=== PATIENT | female | born 1995 | race Caucasian/White ===

== ENCOUNTER 2017-09-19 18:24 | Emergency (ER) | payer OTHER ==
[~2017-09-19] VITALS: Ht 170.2 cm; Wt 66.9 kg
[2017-09-19 18:26] VITALS: TEMP 36.5; Ht 170.2 cm; Wt 66.9 kg
[2017-09-19] MEDS ORDERED: OPTIRAY 320 IV PRN (19:15)
[2017-09-19] MEDS: PATIENT'S ALLERGY INFO NEEDS ENTERED SCH ×2 (19:45→20:15)
[2017-09-19 19:49] LABS: HEMATOCRIT 42.4 % (37-47); HEMOGLOBIN 14.7 g/dL (12.0-16.0); MEAN CORPUSCULAR HEMOGLOBIN 29.1 pg (25-34); MEAN CORPUSCULAR HGB CONC 34.7 g/dl (32-36); MEAN PLATELET VOLUME 8.7 fL (7.4-10.4); PLATELET COUNT 440 K/uL (130-400); RED CELL DISTRIBUTION WIDTH CV 13.9 % (11.5-14.5); RED CELL DISTRIBUTION WIDTH SD 41.9 fL (36.4-46.3); WHITE BLOOD COUNT 15.16 K/uL (4.8-10.8)
--- NOTE | 2017-09-19 19:49 | EMERGENCY ROOM VISIT NOTE ---
History Report prepared by Keri: Sukh Ordoñez Under the Supervision of: Dr. Sy Williamson M.D. First contact with patient: 18:40 Chief Complaint: RIB PAIN Stated Complaint: LFT RIB/LUNG PAIN,COUGHING UP MUCUS History of Present Illness The patient is a 22 year old female who presents to the Emergency Room with complaints of intermittent sharp left rib pain for the past week which s worse with deep inspiration and sitting up from laying down. The patient states that in the beginning of August she had a fever, cough, sweating, and she had bronchitis and was given amoxicillin and prednisone. She went back to [facility] this week for similar symptoms, and she was diagnosed with pleurisy and was given more prednisone. She states that she has had a cough brining up green mucous. The patient is currently on oral contraceptives, and she states that she recently flew from [place] with a layover. She denies any history of blood clots, and she is unsure of her family history of blood clots. The patient denies any fever, nausea, vomiting, and leg swelling. Source of History: patient Onset: week Position: other (left rib) Quality: sharp Timing: intermittent Modifying Factors (Worsening): other (deep inspiration and going from laying to sitting up) Associated Symptoms: + cough, No fevers, No nausea, No vomiting Review of Systems See HPI for pertinent positives and negatives. A total of ten systems were reviewed and were otherwise negative. Past Medical & Surgical Social History Problems: (1) Uses contraception Social History Smoking Status: Never Smoker Housing Status: lives with roommate Occupation Status: [employer] student Current/Historical Medications Scheduled Control Pills ( Control Pills), 1 TAB PO DAILY Prednisone Tab (Prednisone), 10 MG PO UD Allergies Coded Allergies: No Known Allergies (Unverified , 09/19/17) Physical Exam Vital Signs Date Time Temp Pulse Resp B/P (MAP) Pulse Ox O2 Delivery O2 Flow Rate FiO2 09/19/17 21:36 67 18 117/82 98 09/19/17 19:54 74 22 95 09/19/17 19:49 70 15 100 09/19/17 19:44 76 19 94 09/19/17 19:39 70 17 100 09/19/17 19:34 76 19 100 Room Air 09/19/17 19:31 75 09/19/17 19:30 136/89 136/83 09/19/17 18:26 36.5 110 17 127/84 98 Room Air Physical Exam GENERAL: Well appearing, no distress HENT: Normocephalic, atraumatic. Dry mucous membranes. Oropharynx unremarkable. EYES: Normal conjunctiva. Sclera non-icteric. NECK: Supple. No nuchal rigidity. FROM. No JVD. RESPIRATORY: Clear to auscultation. CARDIAC: Regular rate, normal rhythm. Extremities warm and well perfused. Pulses equal. ABDOMEN: Soft, non-distended. No tenderness to palpation. No rebound or guarding. No masses. RECTAL: Deferred. MUSCULOSKELETAL: Reproducible tenderness to the left anterior chest wall. The back is symmetrical on inspection without obvious abnormality. There is no CVA tenderness to palpation. No joint edema. LOWER EXTREMITIES: Calves are equal size bilaterally and non-tender. No edema. No discoloration. NEURO: Normal sensorium. No sensory or motor deficits noted. SKIN: No rash or jaundice noted. Medical Decision & Procedures ER Provider Diagnostic Interpretation: Radiology results as stated below per my review and radiologist interpretation: (CHEST FOR PE) ANGIO WITH CLINICAL HISTORY: 22 years-old Female presenting with ^bilateral rib pain ^2 week h/o cough, pleurisy, rib pain. TECHNIQUE: Multidetector CT angiography of the chest was performed after administration of intravenous contrast. 3-D volumetric and/or maximum intensity projection (MIP) images were subsequently reconstructed for review. IV contrast: 91 mL of Optiray 320. A dose lowering technique was used consistent with the principles of ALARA (as low as reasonably achievable). COMPARISON: None. CT DOSE (mGy.cm): The estimated cumulative dose is 166.03 mGy.cm. FINDINGS: Technology Coordinator topogram: Unremarkable. Pulmonary vasculature: The study is adequate for assessment of the pulmonary vascular tree. No filling defect within the pulmonary arteries to suggest embolus. Main pulmonary artery is not enlarged. No flattening of the interventricular septum. No intracardiac filling defect. No reflux of contrast into the hepatic veins. Remaining chest: On soft tissue windows, normal thyroid and thoracic inlet. No axillary, supraclavicular, hilar, or mediastinal lymphadenopathy. Normal aorta. Normal heart size. No pericardial or pleural effusion. Upper abdomen normal. On lung windows, no focal infiltrate or nodule. Airways patent. On bone windows, normal osseous structures. IMPRESSION: 1. No evidence of pulmonary embolus. No acute intrathoracic pathology. Electronically signed by: Beto Nixon M.D. 09/19/2017 8:51 PM Dictated Date/Time: 09/19/2017 8:47 PM Laboratory Results 09/19/17 19:35 Red Blood Count 5.05, Mean Corpuscular Volume 84.0, Mean Corpuscular Hemoglobin 29.1, Mean Corpuscular Hemoglobin Concent 34.7, Mean Platelet Volume 8.7, Neutrophils (%) (Auto) 70.5, Lymphocytes (%) (Auto) 21.8, Monocytes (%) (Auto) 6.9, Eosinophils (%) (Auto) 0.1, Basophils (%) (Auto) 0.2, Neutrophils # (Auto) 10.69, Lymphocytes # (Auto) 3.31, Monocytes # (Auto) 1.05, Eosinophils # (Auto) 0.01, Basophils # (Auto) 0.03 09/19/17 19:35 Test 09/19/17 19:35 White Blood Count 15.16 K/uL (4.8-10.8) Red Blood Count 5.05 M/uL (4.2-5.4) Hemoglobin 14.7 g/dL (12.0-16.0) Hematocrit 42.4 % (37-47) Mean Corpuscular Volume 84.0 fL (80-100) Mean Corpuscular Hemoglobin 29.1 pg (25-34) Mean Corpuscular Hemoglobin Concent 34.7 g/dl (32-36) Platelet Count 440 K/uL (130-400) Mean Platelet Volume 8.7 fL (7.4-10.4) Neutrophils (%) (Auto) 70.5 % Lymphocytes (%) (Auto) 21.8 % Monocytes (%) (Auto) 6.9 % Eosinophils (%) (Auto) 0.1 % Basophils (%) (Auto) 0.2 % Neutrophils # (Auto) 10.69 K/uL (1.4-6.5) Lymphocytes # (Auto) 3.31 K/uL (1.2-3.4) Monocytes # (Auto) 1.05 K/uL (0.11-0.59) Eosinophils # (Auto) 0.01 K/uL (0-0.5) Basophils # (Auto) 0.03 K/uL (0-0.2) RDW Standard Deviation 41.9 fL (36.4-46.3) RDW Coefficient of Variation 13.9 % (11.5-14.5) Immature Granulocyte % (Auto) 0.5 % Immature Granulocyte # (Auto) 0.07 K/uL (0.00-0.02) Red Blood Cell Morphology Unremarkable D-Dimer 190 ug/L FEU (0-500) Anion Gap 6.0 mmol/L (3-11) Est Creatinine Clear Calc Drug Dose 98.1 ml/min Estimated GFR () 108.1 Estimated GFR (Non- 93.3 BUN/Creatinine Ratio 16.3 (10-20) Calcium Level 9.2 mg/dl (8.5-10.1) Troponin I < 0.015 ng/ml (0-0.045) Laboratory results reviewed by me Medications Administered Medications (Trade) Dose Ordered Sig/Mamta Route Start Time Stop Time Status Last Admin Dose Admin Miscellaneous Information (Patient'S Allergy Info Needs Entered) 1 ea Q30M N/A 09/19/17 19:45 09/19/17 21:08 DC 09/19/17 19:45 1 EA ECG Indication: chest pain Rate (beats per minute): 65 Rhythm: normal sinus Findings: no acute ischemic change, other (Normal axis) Change: Patient's electrocardiogram interpreted by me. ED Course 1839: The patient was evaluated in room A9. A complete history and physical exam was performed. 2106: The patient was reevaluated. Discussed results and discharge instructions : she verbalized understanding and agreement. The patient is ready for discharge. Medical Decision I reviewed the patient's past medical history, medications, and the nursing notes as described above. Differential diagnosis: Etiologies such as cardiac ischemia, aortic dissection, pulmonary embolism, pneumonia, pneumothorax, musculoskeletal, infections, pericarditis, myocarditis , esophageal rupture, gastrointestinal, as well as others were entertained. The patient is a 22-year-old woman currently on oral contraception who presents to emergency department with 1 week of left-sided chest pain in the setting of URI symptoms 1 week ago, diagnosed with pleurisy by PCP and started on prednisone however comes to emergency department for persistent chest pain that is worse with deep inspiration per hpi. Arrival the patient is in no acute distress, afebrile with heart rate in the 100-110s with vital signs otherwise stable. Patient denies any known family history of coagulopathy. EKG unremarkable without any ST elevations, or PA depressions. Negative Spodick's sign. Not worse when supine. Unlikely to be pericarditis. Trop negative. A d- dimer was sent that was negative however, resident also ordered CT PE prior to results and also negative without evidence of pneumonia or pulmonary embolism. WBC 15 the setting of current prednisone and labs otherwise unremarkable. Symptoms most likely related to pleurisy/costochondritis in the setting of her recent URI. Plan for NSAIDs and [facility] follow-up. Findings and plan for follow-up reviewed with patient. Patient agreeable and d/c'd per discharge instructions. I discussed the case with the resident physician, examined the patient, and agree with the findings and plan as documented in the residents note unless otherwise clarified here by me. Medication Reconcilliation Current Medication List: was personally reviewed by me Blood Pressure Screening Patient's blood pressure: Normal blood pressure Impression Primary Impression: Costochondritis Scribe Attestation The scribe's documentation has been prepared under my direction and personally reviewed by me in its entirety. I confirm that the note above accurately reflects all work, treatment, procedures, and medical decision making performed by me. Departure Information Dispostion Home / Self-Care Referrals No Doctor, Assigned (PCP) Forms HOME CARE DOCUMENTATION FORM, IMPORTANT VISIT INFORMATION, WORK / SCHOOL INSTRUCTIONS Patient Instructions My [facility] Additional Instructions You were seen in the ED for rib pain. We ruled out serious cause like pulmonary embolism. You have what's known as costochondritis, which is an inflammation of your ribs and cartilage that can happen after coughing for prolonged periods, or bronchitis. Try to rest and drink plenty of fluids. You can take Mucinex to help with the cough and to relieve the phlegm. Take tylenol and/or motrin for your pain - be sure NOT to exceed the maximum daily dose of either drug, as listed on the packaging. We also recommend you establish with a primary care physician in the area.
[2017-09-19] MEDS ORDERED: BCPILLS PO (20:01)
[2017-09-19] MEDS ORDERED: PRED10TA PO (20:01)
[2017-09-19 20:06] LABS: BLOOD UREA NITROGEN 15 mg/dl (7-18); CALCIUM 9.2 mg/dl (8.5-10.1); CARBON DIOXIDE 27 mmol/L (21-32); CREATININE 0.89 mg/dl (0.60-1.20); GLUCOSE 125 mg/dl (70-99); POTASSIUM 3.6 mmol/L (3.5-5.1); SODIUM 134 mmol/L (136-145)
[2017-09-19 20:31] LABS: BASO % 0.2 %; BASO ABS # 0.03 K/uL (0-0.2); EOS % 0.1 %; EOS ABS # 0.01 K/uL (0-0.5); IG# 0.07 K/uL (0.00-0.02); LYMPH % 21.8 %; LYMPH ABS # 3.31 K/uL (1.2-3.4); MONO % 6.9 %; MONO ABS # 1.05 K/uL (0.11-0.59); NEUT % 70.5 %; NEUT ABS # 10.69 K/uL (1.4-6.5)
--- NOTE | 2017-09-19 20:53 | DIAGNOSTIC IMAGING REPORT ---
(CHEST FOR PE) ANGIO WITH CLINICAL HISTORY: 22 years-old Female presenting with ^bilateral rib pain ^2 week h/o cough, pleurisy, rib pain. TECHNIQUE: Multidetector CT angiography of the chest was performed after administration of intravenous contrast. 3-D volumetric and/or maximum intensity projection (MIP) images were subsequently reconstructed for review. IV contrast: 91 mL of Optiray 320. A dose lowering technique was used consistent with the principles of ALARA (as low as reasonably achievable). COMPARISON: None. CT DOSE (mGy.cm): The estimated cumulative dose is 166.03 mGy.cm. FINDINGS: Pecan Cleaner topogram: Unremarkable. Pulmonary vasculature: The study is adequate for assessment of the pulmonary vascular tree. No filling defect within the pulmonary arteries to suggest embolus. Main pulmonary artery is not enlarged. No flattening of the interventricular septum. No intracardiac filling defect. No reflux of contrast into the hepatic veins. Remaining chest: On soft tissue windows, normal thyroid and thoracic inlet. No axillary, supraclavicular, hilar, or mediastinal lymphadenopathy. Normal aorta. Normal heart size. No pericardial or pleural effusion. Upper abdomen normal. On lung windows, no focal infiltrate or nodule. Airways patent. On bone windows, normal osseous structures. IMPRESSION: 1. No evidence of pulmonary embolus. No acute intrathoracic pathology. Electronically signed by: Beto Nixon M.D. 09/19/2017 8:51 PM Dictated Date/Time: 09/19/2017 8:47 PM
--- NOTE | 2017-09-19 21:00 | EMERGENCY ROOM VISIT NOTE ---
History First contact with patient: 18:40 Chief Complaint: RIB PAIN Stated Complaint: LFT RIB/LUNG PAIN,COUGHING UP MUCUS History of Present Illness The patient is a 22 year old female who presents to the Emergency Room with complaints of 2 week h/o cough, URI and bronchitis treated with a course of amoxicillin and prednisone. Last week pt started having left sided low rib pain , intermittent. Then over the weekend the pain returned suddenly in her left lower ribs, was "sharp" and "stabbing" . Saturday she went to [facility] and was diagnosed with pleurisy, given another course of prednisone to moderate effect. Pt reports it hurts to touch the area, is exacerbated by going from laying to sitting or vice versa, hurts to inhale deeply. Advil has little effect. Reports she is on OCP. Denies cigarettes, immobility, h/o leg clots, or trauma to the area. Reports a persistent cough and green mucus - non bloody. Denies abdominal pain, diarrhea or vomiting, urinary burning or frequency, or leg swelling. Reports intermittent mild head aches. Review of Systems See HPI for pertinent positives and negatives. Social History Smoking Status: Never Smoker Current/Historical Medications Scheduled Control Pills ( Control Pills), 1 TAB PO DAILY Prednisone Tab (Prednisone), 10 MG PO UD Physical Exam Vital Signs Date Time Temp Pulse Resp B/P (MAP) Pulse Ox O2 Delivery O2 Flow Rate FiO2 09/19/17 19:54 74 22 95 09/19/17 19:49 70 15 100 09/19/17 19:44 76 19 94 09/19/17 19:39 70 17 100 09/19/17 19:34 76 19 100 Room Air 09/19/17 19:31 75 09/19/17 19:30 136/89 136/83 09/19/17 18:26 36.5 110 17 127/84 98 Room Air Physical Exam GENERAL: Awake, alert, well-appearing, in no distress HENT: Normocephalic, atraumatic. Oropharynx unremarkable. EYES: Normal conjunctiva. Sclera non-icteric. NECK: Supple. FROM. No JVD. RESPIRATORY: Clear to auscultation. CARDIAC: Regular rate, normal rhythm. Extremities warm and well perfused. Pulses equal. ABDOMEN: Soft, non-distended. No tenderness to palpation. No rebound or guarding. No masses. RECTAL: Deferred. MUSCULOSKELETAL: Chest examination reveals tenderness to right and left lower ribs approx #7-9. The back is symmetrical on inspection without obvious abnormality. There is no CVA tenderness to palpation. No joint edema. LOWER EXTREMITIES: Calves are equal size bilaterally and non-tender. No edema. No discoloration. SKIN: No rash or jaundice noted. Medical Decision & Procedures Laboratory Results 09/19/17 19:35 Red Blood Count 5.05, Mean Corpuscular Volume 84.0, Mean Corpuscular Hemoglobin 29.1, Mean Corpuscular Hemoglobin Concent 34.7, Mean Platelet Volume 8.7, Neutrophils (%) (Auto) 70.5, Lymphocytes (%) (Auto) 21.8, Monocytes (%) (Auto) 6.9, Eosinophils (%) (Auto) 0.1, Basophils (%) (Auto) 0.2, Neutrophils # (Auto) 10.69, Lymphocytes # (Auto) 3.31, Monocytes # (Auto) 1.05, Eosinophils # (Auto) 0.01, Basophils # (Auto) 0.03 09/19/17 19:35 Test 09/19/17 19:35 White Blood Count 15.16 K/uL (4.8-10.8) Red Blood Count 5.05 M/uL (4.2-5.4) Hemoglobin 14.7 g/dL (12.0-16.0) Hematocrit 42.4 % (37-47) Mean Corpuscular Volume 84.0 fL (80-100) Mean Corpuscular Hemoglobin 29.1 pg (25-34) Mean Corpuscular Hemoglobin Concent 34.7 g/dl (32-36) Platelet Count 440 K/uL (130-400) Mean Platelet Volume 8.7 fL (7.4-10.4) Neutrophils (%) (Auto) 70.5 % Lymphocytes (%) (Auto) 21.8 % Monocytes (%) (Auto) 6.9 % Eosinophils (%) (Auto) 0.1 % Basophils (%) (Auto) 0.2 % Neutrophils # (Auto) 10.69 K/uL (1.4-6.5) Lymphocytes # (Auto) 3.31 K/uL (1.2-3.4) Monocytes # (Auto) 1.05 K/uL (0.11-0.59) Eosinophils # (Auto) 0.01 K/uL (0-0.5) Basophils # (Auto) 0.03 K/uL (0-0.2) RDW Standard Deviation 41.9 fL (36.4-46.3) RDW Coefficient of Variation 13.9 % (11.5-14.5) Immature Granulocyte % (Auto) 0.5 % Immature Granulocyte # (Auto) 0.07 K/uL (0.00-0.02) Red Blood Cell Morphology Unremarkable D-Dimer 190 ug/L FEU (0-500) Anion Gap 6.0 mmol/L (3-11) Est Creatinine Clear Calc Drug Dose 98.1 ml/min Estimated GFR () 108.1 Estimated GFR (Non- 93.3 BUN/Creatinine Ratio 16.3 (10-20) Calcium Level 9.2 mg/dl (8.5-10.1) Troponin I < 0.015 ng/ml (0-0.045) Medications Administered Medications (Trade) Dose Ordered Sig/Mamta Route Start Time Stop Time Status Last Admin Dose Admin Miscellaneous Information (Patient'S Allergy Info Needs Entered) 1 ea Q30M N/A 09/19/17 19:45 10/19/17 19:44 09/19/17 19:45 1 EA Procedure (CHEST FOR PE) ANGIO WITH CLINICAL HISTORY: 22 years-old Female presenting with ^bilateral rib pain ^2 week h/o cough, pleurisy, rib pain. TECHNIQUE: Multidetector CT angiography of the chest was performed after administration of intravenous contrast. 3-D volumetric and/or maximum intensity projection (MIP) images were subsequently reconstructed for review. IV contrast: 91 mL of Optiray 320. A dose lowering technique was used consistent with the principles of ALARA (as low as reasonably achievable). COMPARISON: None. CT DOSE (mGy.cm): The estimated cumulative dose is 166.03 mGy.cm. FINDINGS: Plasma Table Operator topogram: Unremarkable. Pulmonary vasculature: The study is adequate for assessment of the pulmonary vascular tree. No filling defect within the pulmonary arteries to suggest embolus. Main pulmonary artery is not enlarged. No flattening of the interventricular septum. No intracardiac filling defect. No reflux of contrast into the hepatic veins. Remaining chest: On soft tissue windows, normal thyroid and thoracic inlet. No axillary, supraclavicular, hilar, or mediastinal lymphadenopathy. Normal aorta. Normal heart size. No pericardial or pleural effusion. Upper abdomen normal. On lung windows, no focal infiltrate or nodule. Airways patent. On bone windows, normal osseous structures. IMPRESSION: 1. No evidence of pulmonary embolus. No acute intrathoracic pathology. Electronically signed by: Beto Nixon M.D. 09/19/2017 8:51 PM Dictated Date/Time: 09/19/2017 8:47 PM ED Course 184 saw and assessed pt 1910 d/w attending. Ordered D-dimer, trop, CBC, CMP, CT PE study, stat ECG. [address] PE shows no embolus. 2099 D/w pt that most likely costochondritis. Take advil/tylenol. F/u with PCP. Medical Decision The patient is a 22 year old female who presents to the Emergency Room with complaints of 2 week h/o cough, URI and bronchitis treated with a course of amoxicillin and prednisone. Last week pt started having left sided low rib pain , intermittent. Then over the weekend the pain returned suddenly in her left lower ribs, was "sharp" and "stabbing" . Saturday she went to [facility] and was diagnosed with pleurisy, given another course of prednisone to moderate effect. Pt reports it hurts to touch the area, is exacerbated by going from laying to sitting or vice versa, hurts to inhale deeply. Advil has little effect. Reports she is on OCP. Denies cigarettes, immobility, h/o leg clots, or trauma to the area. Reports a persistent cough and green mucus - non bloody. Denies abdominal pain, diarrhea or vomiting, urinary burning or frequency, or leg swelling. Reports intermittent mild head aches. Ddx: pulmonary embolism, pleurisy, tachycardia, pericarditis, septic emboli, costochondritis. D-dimer negative, WBC elevated likely due to home prednisone. Discussed findings with patient, gave reassurance. Told to finish taking home meds of amox and prednisone, and for costochondral pain to use ibuprofen/tylenol and apply heat/ice as needed. Also encouraged her to establish with a PCP in the area. Pt verbalized understanding, answered all questions. Blood Pressure Screening Patient's blood pressure: Normal blood pressure Impression Primary Impression: Costochondritis Departure Information Dispostion Home / Self-Care Condition GOOD Referrals No Doctor, Assigned (PCP) Patient Instructions My [facility] Additional Instructions You were seen in the ED for rib pain. We ruled out serious cause like pulmonary embolism. You have what's known as costochondritis, which is an inflammation of your ribs and cartilage that can happen after coughing for prolonged periods, or bronchitis. Try to rest and drink plenty of fluids. You can take Mucinex to help with the cough and to relieve the phlegm. Take tylenol and/or motrin for your pain - be sure NOT to exceed the maximum daily dose of either drug, as listed on the packaging. We also recommend you establish with a primary care physician in the area. Resident Tracking Resident Involvement: Resident Care Provided Care Provided: Adult ED
[2017-09-19 21:36] VITALS: BP 117/82; PULSE 67; O2SAT 98
== END 2017-09-19 21:36 | disposition home or self-care (01) ==
LOC: C.EDB 18:26 → C.EDA 21:36
DX: M94.0 Chondrocostal junction syndrome [Tietze] (principal); Z79.3 Long term (current) use of hormonal contraceptives